=== PATIENT | female | born 1980 | race Caucasian/White ===

== ENCOUNTER 2021-09-19 00:03 | Emergency (ER) | payer BC ==
[~2021-09-19] VITALS: Ht 170.2 cm; Wt 108.9 kg
--- NOTE | 2021-09-19 00:53 | NUR ---
BIBS C/O R TOE PAIN X 4 DAYS 01/15 HX GOUT. PT AWAKE AND ALERT X4 BREATHING EVEN AND UNLABORED.
[2021-09-19] MEDS ORDERED: HYDROCODONE/APAP 10/325MG TABLET ONE (00:58)
[2021-09-19] MEDS ORDERED: ONDANSETRON 4 MG TAB.RAPDIS ONE (00:58)
[2021-09-19] MEDS ORDERED: INDOMETHACIN 25 MG CAPSULE ONE (00:58)
[2021-09-19] MEDS ORDERED: HYDROCODONE/APAP 10/325MG TABLET PO ONE (01:00)
[2021-09-19] MEDS ORDERED: ONDANSETRON 4 MG TAB.RAPDIS SL ONE (01:00)
[2021-09-19] MEDS ORDERED: INDOMETHACIN 25 MG CAPSULE PO ONE (01:00)
[2021-09-19 01:16] LABS: BASOPHILS # (AUTO) 0.1 K/uL (0.0-0.2); BASOPHILS % (AUTO) 0.9 % (0.0-2.0); EOSINOPHILS % (AUTO) 2.6 % (0.0-6.0); HEMATOCRIT 36 % (33-45); HEMOGLOBIN 12.3 g/dL (11.5-14.8); LYMPHOCYTES # (AUTO) 5.6 K/uL (0.8-4.8); LYMPHOCYTES % (AUTO) 33.9 % (20.0-44.0); MEAN CORPUSCULAR HGB CONC 34 g/dl (31.0-36.0); MEAN CORPUSCULAR VOLUME 84 fL (82-100); MONOCYTES # (AUTO) 0.8 K/uL (0.1-1.30); MONOCYTES % (AUTO) 4.8 % (2.0-12.0); NEUTROPHILS # (AUTO) 9.5 K/uL (1.8-8.9); NEUTROPHILS % (AUTO) 57.8 % (43.0-81.0); PLATELET COUNT (AUTO) 382 K/uL (150-450); RED BLOOD CELL COUNT(AUTO) 4.33 MIL/uL (4.0-5.2); WHITE BLOOD COUNT (AUTO) 16.4 K/uL (4.3-11.0)
[2021-09-19] MEDS ORDERED: INDO-12 PO (01:56)
[2021-09-19] MEDS ORDERED: [UNRECOGNIZED DRUG - CODE] PO (01:56)
[2021-09-19] MEDS ORDERED: HYDR-4209 PO (01:56)
[2021-09-19] MEDS ORDERED: ONDA4TAB5 PO (01:56)
[2021-09-19] MEDS ORDERED: COLCHICINE 0.6 MG TABLET ONE (02:09)
--- NOTE | 2021-09-19 02:17 | NUR ---
Patient discharged to home in stable condition. Written and verbal after care instructions given. Patient verbalizes understanding of instruction.
[2021-09-19] MEDS ORDERED: COLCHICINE 0.6 MG TABLET PO ONE (02:30)
[2021-09-19 03:49] VITALS: BP 151/89
== END 2021-09-19 02:20 | disposition home or self-care (01) ==
LOC: ER 00:14
DX: M10.071 Idiopathic gout, right ankle and foot (principal); Z79.899 Other long term (current) drug therapy
CPT/HCPCS: 36415; 84550; 85025; 99284; Q0162

== ENCOUNTER 2022-06-26 15:44 | Emergency (ER) | payer BC ==
[~2022-06-26] VITALS: Ht 170.2 cm; Wt 113.4 kg
[~2022-06-26 15:44] MED LIST: HYDR-4209 PO; INDO-12 PO; ONDA4TAB5 PO; [UNRECOGNIZED DRUG - CODE] PO
--- NOTE | 2022-06-26 16:01 | NUR ---
PT WALKED INTO ER C/O NAUSEA AND VOMITING SINCE 8AM. PT AMBULATED TO BED WITH STEADY GAIT. VSS. AWAITING MD ORDERS.
--- NOTE | 2022-06-26 16:05 | NUR ---
AT BEDSIDE FOR EVAL.
--- NOTE | 2022-06-26 16:06 | NUR ---
ESTABLISHED IV ACCESS 20G RIGHT AC. BLOOD DRAWN AND SENT TO LAB
[2022-06-26] MEDS ORDERED: FAMOTIDINE/PF INJ 20 MG/2 ML VIAL IV ONE ×2 (16:15→16:30)
[2022-06-26] MEDS ORDERED: ONDANSETRON HCL/PF 4 MG/2 ML VIAL ONE (16:15)
[2022-06-26] MEDS ORDERED: ONDANSETRON HCL/PF 4 MG/2 ML VIAL IVP ONE (16:30)
[2022-06-26] MEDS ORDERED: IV NS 0.9% 1,000 ML BAG IV ONE (16:30)
[2022-06-26 16:32] LABS: BASOPHILS # (AUTO) 0.1 K/uL (0.0-0.2); BASOPHILS % (AUTO) 0.8 % (0.0-2.0); EOSINOPHILS % (AUTO) 0.2 % (0.0-6.0); HEMATOCRIT 40 % (33-45); HEMOGLOBIN 13.3 g/dL (11.5-14.8); LYMPHOCYTES # (AUTO) 0.6 K/uL (0.8-4.8); LYMPHOCYTES % (AUTO) 4.9 % (20.0-44.0); MEAN CORPUSCULAR HGB CONC 33 g/dl (31.0-36.0); MEAN CORPUSCULAR VOLUME 84 fL (82-100); MONOCYTES # (AUTO) 0.2 K/uL (0.1-1.30); MONOCYTES % (AUTO) 1.9 % (2.0-12.0); NEUTROPHILS # (AUTO) 10.9 K/uL (1.8-8.9); NEUTROPHILS % (AUTO) 92.2 % (43.0-81.0); PLATELET COUNT (AUTO) 295 K/uL (150-450); RED BLOOD CELL COUNT(AUTO) 4.81 MIL/uL (4.0-5.2); WHITE BLOOD COUNT (AUTO) 11.8 K/uL (4.3-11.0)
[2022-06-26 16:38] LABS: CALCIUM, SERUM 8.7 mg/dL (8.5-10.1); CREATININE 0.8 mg/dL (0.6-1.3); POTASSIUM 3.8 mmol/L (3.5-5.1)
[2022-06-26 16:44] LABS: ALBUMIN 3.6 g/dL (3.4-5.0); BILIRUBIN,DIRECT 0.3 mg/dL (0.0-0.2); BILIRUBIN,TOTAL 0.8 mg/dL (0.2-1.0); TOTAL PROTEIN, SERUM 7.4 g/dL (6.4-8.2)
[2022-06-26 16:49] LABS: BILIRUBIN,URINE NEGATIVE (NEGATIVE); COLOR,URINE YELLOW (YELLOW); LEUKOCYTE ESTERASE ,URINE NEGATIVE (NEGATIVE); NITRITE, URINE NEGATIVE (NEGATIVE); PROTEIN,URINE NEGATIVE (NEGATIVE); UGLUCOSE 3+ mg/dL (NEGATIVE); UROBILINOGEN,URINE 0.2 EU/dL (0.2)
[2022-06-26 17:21] LABS: BACTERIA,URINE RARE /HPF (None Seen); MUCUS,URINE Many /LPF (None Seen); RBC,URINE 0-2 /HPF (0-2); URINE AMORPHOUS URATE Few /HPF (None Seen); WBC,URINE 0-2 /HPF (0-3)
[2022-06-26] MEDS ORDERED: IOHEXOL-300 100 ML VIAL IV ONE (17:43)
[2022-06-26] MEDS ORDERED: IV NS 0.9% 250 ML IV ONE (17:43)
--- NOTE | 2022-06-26 18:12 | NUR ---
BACK FROM CT VIA [facility]
--- NOTE | 2022-06-26 19:34 | NUR ---
REPORT GIVEN TO JAIMIE WHITT FOR RENAE.
[2022-06-26] MEDS ORDERED: ONDA4TAB5 SL (20:15)
--- NOTE | 2022-06-26 20:36 | NUR ---
Patient discharged to home in stable condition. Written and verbal after care instructions given to Patient and family member. Patient and family member verbalizes understanding of instruction.
[2022-06-26 20:41] VITALS: BP 141/82
== END 2022-06-26 20:43 | disposition home or self-care (01) ==
LOC: ER 15:53
DX: R11.10 Vomiting, unspecified (principal); Z79.899 Other long term (current) drug therapy
CPT/HCPCS: 99285; 74177; 96374; 96361; 96375; 85025; 80048; 87086; 83690; 80076; 84703; 81001; 36415; 84702; J3490; J2405; J7050; Q9967